=== PATIENT | male | born 1975 | race Caucasian/White ===

== ENCOUNTER 2016-11-22 02:04 | Emergency (ER) | payer OTHER ==
[~2016-11-22] VITALS: Ht 177.8 cm; Wt 81.6 kg
[~2016-11-22 02:04] MED LIST: ALPR0.5T6 PO; ALPR1TAB6 PO; ASPI-482 PO; ATOR40TA59 PO; CELE200C PO; CYCL10TA2 PO; HYDR-963 PO; METO25TA4 PO; MORP15TA PO; OXYC-328 PO
[2016-11-22 02:14] VITALS: BP 133/83
[2016-11-22 03:11] LABS: BASO # 0.1 x10^3/uL (0.0-0.2); BASO % 1 % (0-3); EOS % 5 % (0-3); HEMATOCRIT 42.2 % (39.0-53.0); LYMPH # 3.4 x10^3/uL (1.0-4.8); LYMPH % 30 % (24-48); MEAN CORPUSCULAR HEMOGLOBIN 31 pg (25-35); MEAN CORPUSCULAR HGB CONC 33 g/dL (31-37); MEAN CORPUSCULAR VOLUME 92 fL (79-100); MONO % 9 % (0-9); NEUT % 55 % (31-73); PLATELET COUNT 315 x10^3/uL (140-400); RED BLOOD COUNT 4.57 x10^6/uL (4.30-5.70); RED CELL DISTRIBUTION WIDTH 13.8 % (11.5-14.5); WHITE BLOOD COUNT 11.4 x10^3/uL (4.0-11.0)
[2016-11-22 03:18] LABS: CALCIUM 9.3 mg/dL (8.5-10.1); CREATININE 0.9 mg/dL (0.7-1.3); GFR 92.1; POTASSIUM 3.3 mmol/L (3.5-5.1)
--- NOTE | 2016-11-22 03:20 | PHYS DOC ---
Past Medical History Past Medical History: A-Fib, Hypertension, Schizophrenia, Other Additional Past Medical Histor: COLIN Past Surgical History: Other Additional Past Surgical Histo: SPELENECTOMY Alcohol Use: Occasionally Additional Information: PT ADMITS TO DRINKING A 6 PACK OF [employer] Drug Use: Benzodiazepine, Marijuana, Opiates Adult General Chief Complaint Chief Complaint: DRUG ABUSE HPI HPI Patient is a 41 year old gentleman who presents secondary to a stroke from opiates and benzos. Patient reports that the last time he used any drugs was approximately 1-2 days ago. Patient reports that he does have a history of schizophrenia and he is having visual and auditory hallucinations. Patient appears to have some paranoid delusions where he thinks his friends are all talking about him behind his back. Patient denies any suicidal or homicidal ideations. Patient reports his last alcohol was prior to arriving. Patient reports she drinks approximately a sixpack of beer earlier today. Patient denies any fevers shakes chills nausea vomiting diarrhea chest pain or shortness of breath. Patient is requesting to be evaluated by her PAT team secondary to his schizophrenia. Patient reports that he does have an inpatient detox bed available to him an approximate 2 weeks. Review of Systems Review of Systems Constitutional: Denies fever or chills [] Eyes: Denies change in visual acuity, redness, or eye pain [] All other review systems are negative except as documented in the history of present illness portion. Current Medications Current Medications Current Medications Medications (Trade) Dose Ordered Sig/[facility] Start Time Stop Time Status Last Admin Dose Admin Alprazolam (Xanax) 1 mg 1X ONCE 11/22/16 04:15 11/22/16 04:23 DC 11/22/16 04:30 1 MG Allergies Allergies Allergies Coded Allergies Type Severity Reaction Last Updated Verified [place] And Derivatives Allergy Unknown ITCHES/DIARRHEA 02/14/16 Yes Physical Exam Physical Exam Constitutional: Well developed, well nourished, no acute distress, non-toxic appearance. [] HENT: Normocephalic, atraumatic, bilateral external ears normal, oropharynx moist, no oral exudates, nose normal. [] Eyes: PERRLA, EOMI, conjunctiva normal, no discharge. [] Neck: Normal range of motion, no tenderness, supple, no stridor. [] Cardiovascular:Heart rate regular rhythm, Lungs & Thorax: Bilateral breath sounds clear to auscultation [] Abdomen: Bowel sounds normal, soft, no tenderness, no masses, no pulsatile masses. [] Skin: Warm, dry, no erythema, no rash. [] Back: No tenderness, no CVA tenderness. [] Extremities: No tenderness, no cyanosis, no clubbing, ROM intact, no edema. [] Neurologic: Alert and oriented X 3, normal motor function, normal sensory function, no focal deficits noted. [] Psychologic: Affect flat judgement normal, mood normal. [] Current Patient Data Vital Signs Vital Signs Date Time Temp Pulse Resp B/P (MAP) Pulse Ox O2 Delivery O2 Flow Rate FiO2 11/22/16 02:14 99.2 79 20 133/83 (100) 99 Room Air 99.2 Lab Values Laboratory Tests Test 11/22/16 03:00 11/22/16 03:17 White Blood Count 11.4 x10^3/uL (4.0-11.0) H Red Blood Count 4.57 x10^6/uL (4.30-5.70) Hemoglobin 14.0 g/dL (13.0-17.5) Hematocrit 42.2 % (39.0-53.0) Mean Corpuscular Volume 92 fL (79-100) Mean Corpuscular Hemoglobin 31 pg (25-35) Mean Corpuscular Hemoglobin Concent 33 g/dL (31-37) Red Cell Distribution Width 13.8 % (11.5-14.5) Platelet Count 315 x10^3/uL (140-400) Neutrophils (%) (Auto) 55 % (31-73) Lymphocytes (%) (Auto) 30 % (24-48) Monocytes (%) (Auto) 9 % (0-9) Eosinophils (%) (Auto) 5 % (0-3) H Basophils (%) (Auto) 1 % (0-3) Neutrophils # (Auto) 6.2 x10^3uL (1.8-7.7) Lymphocytes # (Auto) 3.4 x10^3/uL (1.0-4.8) Monocytes # (Auto) 1.0 x10^3/uL (0.0-1.1) Eosinophils # (Auto) 0.6 x10^3/uL (0.0-0.7) Basophils # (Auto) 0.1 x10^3/uL (0.0-0.2) Sodium Level 144 mmol/L (136-145) Potassium Level 3.3 mmol/L (3.5-5.1) L Chloride Level 106 mmol/L (98-107) Carbon Dioxide Level 29 mmol/L (21-32) Anion Gap 9 (6-14) Blood Urea Nitrogen 14 mg/dL (8-26) Creatinine 0.9 mg/dL (0.7-1.3) Estimated GFR (Cockcroft-Gault) 92.1 BUN/Creatinine Ratio 16 (6-20) Glucose Level 101 mg/dL (70-99) H Calcium Level 9.3 mg/dL (8.5-10.1) Total Bilirubin 0.4 mg/dL (0.2-1.0) Aspartate Amino Transferase (AST) 17 U/L (15-37) Alanine Aminotransferase (ALT) 26 U/L (16-63) Alkaline Phosphatase 97 U/L (46-116) Total Protein 7.5 g/dL (6.4-8.2) Albumin 4.0 g/dL (3.4-5.0) Albumin/Globulin Ratio 1.1 (1.0-1.7) Ethyl Alcohol Level < 10 mg/dL (0-10) Urine Collection Type Unknown Urine Color Yellow Urine Clarity Clear Urine pH 5.5 Urine Specific [place] 1.025 Urine Protein Negative mg/dL (NEG-TRACE) Urine Glucose (UA) Negative mg/dL (NEG) Urine Ketones (Stick) Negative mg/dL (NEG) Urine Blood Negative (NEG) Urine Nitrite Negative (NEG) Urine Bilirubin Negative (NEG) Urine Urobilinogen Dipstick 0.2 mg/dL (0.2 mg/dL) Urine Leukocyte Esterase Negative (NEG) Urine RBC 0 /HPF (0-2) Urine WBC 0 /HPF (0-4) Urine Squamous Epithelial Cells Occ /LPF Urine Bacteria 0 /HPF (0-FEW) Urine Mucus Marked /LPF Urine Opiates Screen Neg (NEG) Urine Methadone Screen Neg (NEG) Urine Barbiturates Neg (NEG) Urine Phencyclidine Screen Neg (NEG) Urine Amphetamine/Methamphetamine Neg (NEG) Urine Benzodiazepines Screen Neg (NEG) Urine Cocaine Screen Neg (NEG) Urine Cannabinoids Screen Pos (NEG) Urine Ethyl Alcohol Neg (NEG) Laboratory Tests 11/22/16 03:00 Laboratory Tests 11/22/16 03:00 EKG EKG [] Radiology/Procedures Radiology/Procedures [] Course & Med Decision Making Course & Med Decision Making Pertinent Labs and Imaging studies reviewed. (See chart for details) [] 41-year-old gentleman who drank a sixpack prior to arrival presents secondary to feel like he is withdrawing from opiates and benzodiazepines. Patient also has a history of schizophrenia and is requesting evaluation by the PAT team. Patient's otherwise clinically hemodynamically stable. Labs were drawn the patient and we're waiting results. Patient's labs were all within normal limits. Patient's urine drug screen was negative. Patient's alcohol level was 0. Patient is given Xanax 1 mg by mouth to assist with sedation. The pat team has evaluated the patient in the ED and they have assist with placement secondary to his acute exacerbation of her schizophrenia. Dragon Disclaimer Dragon Disclaimer This electronic medical record was generated, in whole or in part, using a voice recognition dictation system. Departure Departure Impression: Primary Impression: Schizophrenia Additional Impressions: Hallucinations Drug abuse Disposition: 65 XFER TO PSYCH HOSP/UNIT Condition: STABLE Referrals: TAWANDA LENTZ (PCP) Problem Qualifiers ROSALVA BUCHANAN MD Nov 22, 2016 03:20
[2016-11-22 03:23] LABS: ALBUMIN/GLOBULIN RATIO 1.1 (1.0-1.7); TOTAL BILIRUBIN 0.4 mg/dL (0.2-1.0); TOTAL PROTEIN 7.5 g/dL (6.4-8.2)
[2016-11-22 03:24] LABS: BILIRUBIN,URINE NEGATIVE (NEG); GLUCOSE,URINE NEGATIVE (NEG); NITRITE,URINE NEGATIVE (NEG); PH,URINE 5.5; PROTEIN,URINE NEGATIVE (NEG-TRACE); UROBILINOGEN,URINE 0.2 mg/dL (0.2 mg/dL)
[2016-11-22 03:30] LABS: BACTERIA,URINE 0 /HPF (0-FEW); RBC,URINE 0 /HPF (0-2); SQUAMOUS EPITHELIAL CELL,UR OCC /LPF; WBC,URINE 0 /HPF (0-4)
[2016-11-22 03:32] LABS: BARBITURATES NEG (NEG); BENZODIAZEPINES NEG (NEG); CANNABINOIDS POS (NEG); COCAINE NEG (NEG); METHADONE NEG (NEG); OPIATES NEG (NEG); PHENCYCLIDINE NEG (NEG)
[2016-11-22] MEDS ORDERED: ALPRAZolam 0.5 MG TABLET PO ONE (04:15)
== END 2016-11-22 05:50 ==
LOC: ER 02:04
DX: F20.9 Schizophrenia, unspecified (principal); F11.10 Opioid abuse, uncomplicated; F13.10 Sedative, hypnotic or anxiolytic abuse, uncomplicated; I48.91 Unspecified atrial fibrillation; I10 Essential (primary) hypertension; F12.10 Cannabis abuse, uncomplicated; Z91.018 Allergy to other foods
CPT/HCPCS: 36415; 80053; 80305; 81001; 85027; 99285; G0480; G0481

== ENCOUNTER 2017-01-07 15:04 | Emergency (ER) | payer OTHER ==
[2017-01-07 17:07] LABS: POTASSIUM ISTAT 3.7 mmol/L (3.5-5.0)
[2017-01-07 17:17] LABS: BARBITURATES NEG (NEG); BENZODIAZEPINES POS (NEG); CANNABINOIDS POS (NEG); COCAINE NEG (NEG); METHADONE NEG (NEG); OPIATES NEG (NEG); PHENCYCLIDINE NEG (NEG)
[2017-01-07] MEDS ORDERED: ALPRAZolam 0.5 MG TABLET PO ONE (17:30)
[2017-01-07 18:05] VITALS: BP 148/77
--- NOTE | 2017-01-07 18:16 | PHYS DOC ---
Past Medical History Past Medical History: A-Fib, Hypertension, Schizophrenia, Other Additional Past Medical Histor: COLIN Past Surgical History: Other Additional Past Surgical Histo: SPELENECTOMY Alcohol Use: Occasionally Drug Use: Benzodiazepine, Marijuana, Opiates Adult General Chief Complaint Chief Complaint: PSYCH EVALUATION HPI HPI Patient is a 41 year old male brought to the ED by EMS. Originally, the report was the patient had been walking down the sidewalk and "had a seizure". However , when I saw the patient, I was told that he has had suicidal ideation. Talking to the patient, he states he has anxiety. Someone "hid his alprazolam" and his last dose was yesterday. He also tells me that he was recently diagnosed with schizophrenia. He does have a primary care physician, Dr. Hernandez, but says he does not have a psychiatrist. It sounds like his psychiatric follow-up has been spotty. He's been hospitalized at 2 or 3 locations and has never had consistent follow-up. Today he has had suicidal thoughts but no specific suicidal commands and no specific plans. He has not had a suicide gesture or attempt. He states that with previous ER visits and hospitalizations he was much more paranoid and out of touch with reality but today he feels like he is in touch with reality. He knows where he is and he knows what's going on. Meds brought in by EMS with the patient include a prednisone taper that was started on 01/04, patient states it is for tendinitis Review of Systems Review of Systems Constitutional: Denies fever or chills [] Eyes: Denies change in visual acuity, redness, or eye pain [] HENT: Denies nasal congestion or sore throat [] Respiratory: Denies cough or shortness of breath [] Cardiovascular: Denies chest pain GI: Denies abdominal pain, nausea, vomiting, bloody stools or diarrhea [] Musculoskeletal: He has been dealing with some wrist and arm pain diagnosed as tendinitis, see history of present illness Neurologic: Denies headache, focal weakness or sensory changes [] Psychiatric: As in history of present illness Current Medications Current Medications Current Medications Medications (Trade) Dose Ordered Sig/[facility] Start Time Stop Time Status Last Admin Dose Admin Alprazolam (Xanax) 1 mg 1X ONCE 01/07/17 17:30 01/07/17 17:31 DC 01/07/17 17:24 1 MG Allergies Allergies Allergies Coded Allergies Type Severity Reaction Last Updated Verified [place] And Derivatives Allergy Unknown ITCHES/DIARRHEA 02/14/16 Yes Physical Exam Physical Exam Constitutional: Well developed, well nourished, no acute distress, non-toxic appearance. [] HENT: Normocephalic, atraumatic, bilateral external ears normal, oropharynx moist, no oral exudates, nose normal. [] Eyes: PERRLA, EOMI, conjunctiva normal, no discharge. [] Neck: Normal range of motion, no tenderness, supple, no stridor. [] Cardiovascular:Heart rate regular rhythm, no murmur [] Lungs & Thorax: Bilateral breath sounds clear to auscultation [] Abdomen: Bowel sounds normal, soft, no tenderness, no masses, no pulsatile masses. [] Skin: Warm, dry, no erythema, no rash. [] Back: No tenderness, no CVA tenderness. [] Extremities: No tenderness, no cyanosis, no clubbing, ROM intact, no edema. [] Neurologic: Alert and oriented X 3, normal motor function, normal sensory function, no focal deficits noted. [] Psychologic: Affect normal, judgement normal, mood normal. [] Current Patient Data Vital Signs Vital Signs Date Time Temp Pulse Resp B/P (MAP) Pulse Ox O2 Delivery O2 Flow Rate FiO2 01/07/17 18:05 78 14 148/77 (100) 96 Room Air 01/07/17 15:33 98.0 98.0 Lab Values Laboratory Tests Test 01/07/17 16:55 01/07/17 17:03 Urine Opiates Screen Neg (NEG) Urine Methadone Screen Neg (NEG) Urine Barbiturates Neg (NEG) Urine Phencyclidine Screen Neg (NEG) Urine Amphetamine/Methamphetamine Neg (NEG) Urine Benzodiazepines Screen Pos (NEG) Urine Cocaine Screen Neg (NEG) Urine Cannabinoids Screen Pos (NEG) Urine Ethyl Alcohol Neg (NEG) POC Hemoglobin 15.3 g/dL (14-18) POC Hematocrit 45 % (37-52) POC Sodium 143 mmol/L (135-145) POC Potassium 3.7 mmol/L (3.5-5.0) POC Chloride 107 mmol/L (98-110) POC Total CO2 26 mmol/L (23-32) Anion Gap 15 mmol/L (6-14) H POC Blood Urea Nitrogen 22 mg/dL (8-26) POC Creatinine 1.0 mg/dL (0.5-1.4) Glucose Level 151 mg/dL (70-99) H POC Ionized Calcium (Alessandro) 1.17 mmol/L (1.13-1.32) Laboratory Tests 01/07/17 17:03 EKG EKG [] Radiology/Procedures Radiology/Procedures [] Course & Med Decision Making Course & Med Decision Making Pertinent Labs and Imaging studies reviewed. (See chart for details) 41-year-old male with a relatively recent diagnosis, per his history, of paranoid schizophrenia, presents by EMS with some suicidal ideation but patient is appropriate and not psychotic. He reports being anxious. He reports that he has not eaten today and he doesn't think he ate yesterday either. He denies any drug use other than what is prescribed to him. The patient does not have a psychiatrist and doesn't have mental health follow-up in place. We discussed that he needs both of these things and he is agreeable to talking to someone from the PAT team Walt came to evaluate the patient and they agreed that the patient would be transferred to [facility] for inpatient. The patient rested comfortably in the ED, ate a lunch tray and was given 1 dose of alprazolam for his symptoms of anxiety. The patient was transferred by ambulance in a stable condition. [] Dragon Disclaimer Dragon Disclaimer This electronic medical record was generated, in whole or in part, using a voice recognition dictation system. Departure Departure Impression: Primary Impression: Suicidal ideation Additional Impression: Schizophrenia Disposition: 02 TRANSFER [facility] Condition: STABLE Referrals: TAWANDA HERNANDEZ (PCP) Problem Qualifiers MARIA R WYLIE MD Jan 07, 2017 18:16
== END 2017-01-07 18:13 | disposition short-term general hospital (02) ==
LOC: ER 15:04
DX: F20.9 Schizophrenia, unspecified (principal); F41.9 Anxiety disorder, unspecified; I48.91 Unspecified atrial fibrillation; I10 Essential (primary) hypertension; F12.10 Cannabis abuse, uncomplicated; F11.10 Opioid abuse, uncomplicated; F19.10 Other psychoactive substance abuse, uncomplicated; Z88.8 Allergy status to other drugs, medicaments and biological substances
CPT/HCPCS: 80047; 80307; 99285-25; G0479